=== PATIENT | female | born 1955 | race Caucasian/White ===

== ENCOUNTER → 2017-12-17 | Outpatient (CLI) | payer OTHER, MEDICARE ==
[2017-12-17] VITALS (12 sets, daily range): BP systolic 74–122; BP diastolic 48–90
[~2017-12-17] MED LIST: ACCUNEB SO1.25 MG/1 INH; ACETAMINOPHEN500 M1 PO; AMOXICILLIN 50500 MG PO; APAP650 PO; BENADRYL25 MG PO; BENTYL 20 MG TA20 M1 PO; BOOST244 ML PO; COLACE100 MG PO; DIGEST ADV INT1 EACH PO; ECHINACEA & GO1 EACH PO; EPINEPHRIN0.3 MG/0.1 IM; FLOMAX0.4 MG PO; FLONASE 0.05%50 MCG NASAL; FLOVENT HFA 1110 MCG INH; FLOVENT HFA 4444 MCG INH; FLOVENT INH; GAS-X125 MG PO; HYDROCODONE-AP1 EAC6 PO; KEFLEX500 MG PO; KLOR-CON 1010 MEQ PO; LEVALBUTER1.25 MG/0. INH; LINZESS72 MCG PO; MIRALAX17 G1 PO; MIRALAX17 GM PO; MOXIFLOXACIN3 ML OPHTHALMIC; MUCINEX TA600 MG/TA2 PO; NASONEX17 GM NASAL; PEPCID20 MG PO; PHENERGAN 25 MG25 M1 PO; PRED-FORTE OPHTH1 M1 OPHTHALMIC; PROAIR HFA8.5 GM INH; PROBIOTIC1 EAC1 PO; PROTONIX40 M1 PO; REFRESH PLUS1 EACH OPHTHALMIC; SYSTANE NIGHTT3.5 GM OPHTHALMIC; TOBRADEX ST EYE5 ML OPHTHALMIC; TRAMADOL 50 MG50 MG PO; UNICOMPLEX M TA1 TA1 PO; VITAMIN D1000 UNI1 PO; VITAMIN D2000 UNIT PO; XOPENEX HFA15 GM INH; XYZAL5 MG PO; ZANTAC 150MG T150 MG PO
--- NOTE | 2017-12-25 11:39 | CARD ---
[address] [address] CARDIAC CATH REPORT Name: VICKYALIE SHAREE Room: [facility]#: [id number] Admission: 12/17/17 Attend Phys: Ketan Cooper MD Discharge: Date of : 55 Report #: [id number] THIS REPORT FOR: //name// CC: Laine Cooper PROCEDURE: Tilt table test. INDICATION: Hypotension with possible autonomic dysfunction. DESCRIPTION OF PROCEDURE: After informed consent was obtained, the patient was brought to the cardiac catheterization holding area. The patient was placed on the tilt table. The patient was secured using the designated straps. At baseline, blood pressure and pulse rate were obtained. The patient was then tilted to the 70-degree head upright position. Heart rate and blood pressure were monitored every 2 minutes for an initial phase of 20 minutes, through which the patient remained stable. At the completion of this phase, the patient was given 0.4 mg of sublingual nitroglycerin. Blood pressure and heart rate were again recorded every 2 minutes. The patient developed fairly significant hypotension within a few minutes post sublingual nitro administration and ultimately did have a syncopal episode. In this setting, she was noted to have a normal heart rate that did not respond to profound hypotension. The patient's tilt table was then placed in the supine position. The patient's vital signs stabilized. She regained consciousness and there were no prolonged complication. Blood pressure at the initiation of the test was 110/82 mmHg with a pulse rate of 79 beats per minute. The patient's response to initial tilt was no change in blood pressure. She had no significant change in heart rate. At the completion of the initial 20 minutes, the blood pressure was 122/87 mmHg with a pulse rate of 77 beats per minute. The patient was then given sublingual nitroglycerin. Within 6 minutes, the patient had profound hypotension. She had syncope. Her blood pressure at this time was 74/48 mmHg. Her pulse rate at this time was 68 beats per minute. The tilt table was placed in the supine position. The patient's blood pressure gradually increased. At the completion of the test, the patient's blood pressure was 90/62 mmHg with a pulse rate of 71 beats per minute. IMPRESSION: Mild cardioinhibitory response to hypotension. The patient exhibited profound hypotension with vasodilation after sublingual nitroglycerin administration. She had an inappropriate, although not profound reduction in heart rate. She did have syncope. I would consider this a weakly positive tilt table test. <ELECTRONICALLY SIGNED> By: Ketan Cooper MD, FACC 12/25/17 [id number] Cooper MD, FACC /nt
== END | disposition home or self-care (01) ==
LOC: M.CL 08:06
DX: I95.9 Hypotension, unspecified (principal); Z88.8 Allergy status to other drugs, medicaments and biological substances; Z79.899 Other long term (current) drug therapy